=== PATIENT | male | born 1965 | race Caucasian/White ===

== ENCOUNTER 2021-02-07 08:23 | Emergency (ER) | payer OTHER ==
[~2021-02-07] VITALS: Ht 180.3 cm; Wt 70.3 kg
[2021-02-07 09:50] VITALS: BP 114/82
== END 2021-02-07 10:29 | disposition home or self-care (01) ==
LOC: ER 08:23
DX: S46.911A Strain of unspecified muscle, fascia and tendon at shoulder and upper arm level, right arm, initial encounter (principal); M19.011 Primary osteoarthritis, right shoulder; F17.210 Nicotine dependence, cigarettes, uncomplicated; Z88.6 Allergy status to analgesic agent; Z88.8 Allergy status to other drugs, medicaments and biological substances; X50.1XXA Overexertion from prolonged static or awkward postures, initial encounter; Y93.89 Activity, other specified; Y92.89 Other specified places as the place of occurrence of the external cause; Y99.8 Other external cause status
CPT/HCPCS: 73030

== ENCOUNTER 2024-02-10 08:14 | Inpatient (IN) | payer OTHER ==
[2024-02-10] VITALS (10 sets, daily range): BP systolic 114–133; BP diastolic 78–83; PULSE 59–105; RESP 16–20; TEMP 98.2; O2SAT 92–98
[~2024-02-10] VITALS: Ht 180.3 cm; Wt 69.3 kg
--- NOTE | 2024-02-10 09:37 | DVH ---
CHEST RADIOGRAPH Indication:sob Technique: Single frontal view of the chest was obtained COMPARISON: None FINDINGS: Lines and Tubes: None Lungs: Clear Pleura: No effusion. No pneumothorax. Cardiomediastinal contours: Unremarkable Bones: Unremarkable IMPRESSION: No acute disease.
[2024-02-10 09:40] LABS: Basophils # (auto) 0 10 ^3/uL (0-0.2); Basophils % (auto) 0.9 % (0.0-2.0); Eosinophils # (auto) 0.2 10 ^3/uL (0-0.8); Eosinophils % (auto) 3.3 % (0.0-7.0); Hemoglobin 16.2 g/dL (13.5-17.5); Lymphocytes # (auto) 0.9 10 ^3/uL (0.4-5.4); Lymphocytes % (auto) 18.1 % (10.0-50.0); Mean Corpuscular Hemoglobin 31.5 pg (28.0-32.0); Mean Corpuscular Hgb Conc. 33.1 g/dL (32.0-36.0); Mean Corpuscular Volume 95.3 fL (80.0-100.0); Monocytes # (auto) 0.8 10 ^3/uL (0-1.3); Monocytes % (auto) 15.3 % (0.0-12.0); Neutrophils # (auto) 3.2 10 ^3/uL (1.6-8.6); Neutrophils % (auto) 62.4 % (37.0-80.0); Platelet Count (auto) 290 10^3/uL (140-450); Red Blood Cells 5.14 10^6/uL (4.5-5.90); Red Cell Distribution Width 13.4 % (11.8-14.3); White Blood Cell 5.1 10^3/uL (4.4-10.8)
[2024-02-10 09:43] LABS: Chloride 106 mmol/L (98-107); Potassium 4.5 mmol/L (3.5-5.1); Sodium 140 mmol/L (136-145)
--- NOTE | 2024-02-10 09:43 | ECG ---
[facility] Test Date: 2024-02-10 Test Time: 08:31:18 Pat Name: MARIA M CALLEJAS Department: ER Room: Gender: M Head Of Art: HELADIO : 1965 Requested By: TANVIR GARZA Order Number: [id number] Reading MD: Measurements Intervals [place] Rate: 51 P: 76 AL: 111 QRS: 88 QRSD: 107 T: 61 QT: 438 QTc: 404 Interpretive Statements Sinus rhythm Borderline short AL interval LAE, consider biatrial enlargement Borderline right axis deviation Please click the below link to view image of tracing.
[2024-02-10 09:44] LABS: Anion Gap 1 (5-15); Carbon Dioxide 33 mmol/L (20-31)
[2024-02-10 09:45] LABS: Calcium 9.8 mg/dL (8.7-10.4)
[2024-02-10 09:49] LABS: Glucose 91 mg/dL (74-106)
[2024-02-10 09:50] LABS: BUN/Creatinine Ratio 14.9 (10.0-20.0); Blood Urea Nitrogen 13 mg/dL (9-23)
[2024-02-10] MEDS: methylPREDNISolone SOD SUCC 125 MG/2 ML VL IV ONE (10:41)
[2024-02-10] MEDS: ALBUTEROL SULF 2.5 MG/0.5ML(0.5%) NEB SOLN NEB ONE (10:43)
--- NOTE | 2024-02-10 10:43 | ED.PDOC ---
History of Present Illness HPI Comments 58 y/o M, with a Hx of asthma, COPD, prostate CA, and polysubstance abuse, presents with c/o shortness of breath for 4 days. Patient endorses on progressively worsening symptoms since initial onset, with no relief with inhaler use. Patient comments on feeling his "lungs tight" and having "something" in them. Patient denies having any chest pain, dyspnea, cough, fever, chills, or other associated symptoms or modifiers at this time. Chief Complaint: Shortness of Breath Time Seen by MD: 08:40 Primary Care Provider: UNKNOWN Reviewed Notes: Nurses Notes, Medications, Allergies Allergies: Coded Allergies: NSAIDs (Unverified Allergy, Severe, SWELING, SOB, DIFFICULTY BREATHING, COUGHING, HIVES, 12/03/13) Aspirin (Verified Allergy, Unknown, 09/07/13) Home Meds No Active Prescriptions or Reported Meds Information Source: Patient Mode of Arrival: Ambulatory Severity: Moderate Timing: Days Duration: Since onset Prehospital treatment: None Past Medical History PAST MEDICAL HISTORY: Asthma, Cancer (prostate ), COPD Surgical History: Denies all surgeries Family History Family History: Reviewed,noncontributory to illness Social History Smoker: Cigarettes, Less Than 1 Pack/Day Alcohol: Occasionally Drugs: Marijuana Lives In: Home Constitutional: denies: chills, diaphoresis, fatigue, fever, malaise, sweats, weakness, others EENTM: denies: blurred vision, double vision, ear bleeding, ear discharge, ear drainage, ear pain, ear ringing, eye pain, eye redness, hearing loss, mouth pain, mouth swelling, nasal discharge, nose bleeding, nose congestion, nose pain, photophobia, tearing, throat pain, throat swelling, voice changes, others Respiratory: reports: shortness of breath; denies: cough, hemoptysis, orthopnea, SOB at rest, SOB with excertion, stridor, wheezing, others Cardiovascular: denies: chest pain, dizzy spells, diaphoresis, Dyspnea on exertion, edema, irregular heart beat, left arm pain, lightheadedness, palpitations, PND, syncope, others Gastrointestinal: denies: abdomen distended, abdominal pain, blood streaked bowels, constipated, diarrhea, dysphagia, difficulty swallowing, hematemesis, melena, nausea, poor appetite, poor fluid intake, rectal bleeding, rectal pain, vomiting, others Genitourinary: denies: burning, dysuria, flank pain, frequency, hematuria, incontinence, penile discharge, penile sore, pain, testicle pain, testicle swelling, urgency, others Neurological: denies: dizziness, fainting, headache, left sided numbness, left sided weakness, numbness, paresthesia, pre-existing deficit, right sided numbness, right sided weakness, seizure, speech problems, tingling, tremors, weakness, others Musculoskeletal: denies: back pain, gout, joint pain, joint swelling, muscle pain, muscle stiffness, neck pain, others Integumetry: denies: bruises, change in color, change in hair/nails, dryness, laceration, lesions, lumps, rash, wounds, others Allergic/Immunocompromised: denies: Difficulty Healing, Frequent Infections, Hives, Itching, others Hematologic/Lymphatic: denies: anemia, blood clots, easy bleeding, easy bruising, swollen glands, others Endocrine: denies: excessive hunger, excessive sweating, excessive thirst, excessive urination, flushing, intolerance to cold, intolerance to heat, unexplained weight gain, unexplained weight loss, others Psychiatric: denies: anxiety, bipolar disorder, depression, hopeless, panic disorder, schizophrenia, sleepless, suicidal, others All Other Systems: Reviewed and Negative Physical Exam General Appearance: Moderate Distress HEENT: Normal ENT Inspection, Pharynx Normal, TMs Normal Neck: Full Range of Motion, Non-Tender, Normal, Normal Inspection Respiratory: Other (Coarse breath sounds) Cardiovascular: No Edema, No JVD, No Murmur, No Gallop, Normal Peripheral Pulses, Regular Rate/Rhythm Breast Exam: Deferred Gastrointestinal: No Organomegaly, Non Tender, No Pulsatile Mass, Normal Bowel Sounds, Soft Genitalia: Deferred Pelvic: Deferred Rectal: Deferred Extremities: No calf tenderness, Normal capillary refill, Normal inspection, Normal range of motion, Non-tender, No pedal edema Musculoskeletal : Apperance: Normal Neurologic: Alert, 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 Was a procedure done?: No EKG EKG : Pulse Rate (adult): 51 [place]: Normal Cardiac Rhythm: NSR Block: None Hypertrophy: None ST: Normal Differential Dx Considerations may include: SC, PE, bronchitis, PNA, Covid19, URI, COPD exacerbation, asthma exacerbation X-Ray, Labs, Meds, VS Vital Signs Date Time Temp Pulse Resp B/P (MAP) Pulse Ox O2 Delivery O2 Flow Rate FiO2 02/10/24 10:45 59 18 95 Room Air* 0 21 02/10/24 10:44 21 95 Room Air* 0 21 02/10/24 10:43 51 02/10/24 10:40 97.5 59 18 133/83 (100) 95 97.5 02/10/24 08:31 51 02/10/24 08:18 97.5 63 22 130/86 (101) 94 02/10/24 08:18 22 94 Room Air* 0 21 Lab Test 02/10/24 09:16 Range/Units White Blood Count 5.1 4.4-10.8 10^3/uL Red Blood Count 5.14 4.5-5.90 10^6/uL Hemoglobin 16.2 13.5-17.5 g/dL Hematocrit 49.0 41.0-53.0 % Mean Corpuscular Volume 95.3 80.0-100.0 fL Mean Corpuscular Hemoglobin 31.5 28.0-32.0 pg Mean Corpuscular Hemoglobin Concent 33.1 32.0-36.0 g/dL Red Cell Distribution Width 13.4 11.8-14.3 % Platelet Count 290 140-450 10^3/uL Mean Platelet Volume 8.5 6.9-10.8 fL Neutrophils (%) (Auto) 62.4 37.0-80.0 % Lymphocytes (%) (Auto) 18.1 10.0-50.0 % Monocytes (%) (Auto) 15.3 H 0.0-12.0 % Eosinophils (%) (Auto) 3.3 0.0-7.0 % Basophils (%) (Auto) 0.9 0.0-2.0 % Neutrophils # (Auto) 3.2 1.6-8.6 10 ^3/uL Lymphocytes # (Auto) 0.9 0.4-5.4 10 ^3/uL Monocytes # (Auto) 0.8 0-1.3 10 ^3/uL Eosinophils # (Auto) 0.2 0-0.8 10 ^3/uL Basophils # (Auto) 0 0-0.2 10 ^3/uL Nucleated Red Blood Cells 0.0 % Sodium Level 140 136-145 mmol/L Potassium Level 4.5 3.5-5.1 mmol/L Chloride Level 106 98-107 mmol/L Carbon Dioxide Level 33 H 20-31 mmol/L Anion Gap 1 L 5-15 Blood Urea Nitrogen 13 9-23 mg/dL Creatinine 0.87 0.700-1.30 mg/dL Glomerular Filtration Rate Calc 99 >90 mL/min BUN/Creatinine Ratio 14.9 10.0-20.0 Serum Glucose 91 74-106 mg/dL Calcium Level 9.8 8.7-10.4 mg/dL Troponin I High Sensitivity < 3 L </=54 ng/L Current Medications Medications (Trade) Dose Ordered Sig/Jeanie Route Start Time Stop Time Status Last Admin Methylprednisolone Sodium Succinate (Solu Medrol) 125 mg ONCE ONCE IV 02/10/24 10:30 02/10/24 10:31 DC 02/10/24 10:41 Albuterol (Ventolin Medneb) 5 mg ONCE ONCE NEB 02/10/24 10:30 02/10/24 10:31 DC 02/10/24 10:43 Ipratropium [place] (Atrovent Medneb) 0.5 mg ONCE ONCE NEB 02/10/24 10:30 02/10/24 10:31 DC 02/10/24 10:44 Levofloxacin/ Dextrose 100 ml @ 100 mls/hr ONCE ONCE IV 02/10/24 11:15 02/10/24 12:14 02/10/24 11:[address] [address] Ph: [phone] DIAGNOSTIC IMAGING Diagnostic Imaging Report : [id number] Signed PATIENT: MARIA M CALLEJAS ACCT: [id number] UNIT: [id number] : 1965 LOC: ER ROOM / BED: / AGE / SEX: 58 / M ADM STATUS: REG ER SERVICE 4 ORDERING PHYSICIAN: TANVIR GARZA MD PROCEDURE(s): CXRP - CHEST PORTABLE REASON: sob ORDER NUMBER(s): [id number], ACCESSION NUMBER(s): [id number] CHEST RADIOGRAPH Indication:sob Technique: Single frontal view of the chest was obtained COMPARISON: None FINDINGS: Lines and Tubes: None Lungs: Clear Pleura: No effusion. No pneumothorax. Cardiomediastinal contours: Unremarkable Bones: Unremarkable IMPRESSION: No acute disease. ATED BY: HUSEYIN LOONEY MD DICTATED DATE/TIME: 02/10/24933 SIGNED BY: HUSEYIN LOONEY MD SIGNED DATE/TIME: 02/10/24933 CC: Patient alert. Complaining of shortness a breath. History of asthma. Vitals stable. Continues to smoke cigarettes. Counseled patient on effects of smoking cigarettes for 15 minutes. Chest x-ray reviewed does not show any acute changes. Cardiac marker within normal limits. CO2 elevated. Continues to have shortness a breath. Was given steroid. Was given breathing treatment. Reviewed his previous visit. Explained to the patient. Continue cardiac monitoring. Time of 1ST Reevaluation: 09:10 Reevaluation 1ST: Unchanged Patient Education/Counseling: Diagnosis, Treatment Family Education/Counseling: No Family Present Departure 1 Departure Time of Disposition: :12 Impression: Primary Impression: Acute asthma exacerbation Qualified Codes: J45.41 - Moderate persistent asthma with (acute) exacerbation Additional Impression: Pneumonitis Disposition: ADMITTED INPATIENT Admit to: Med Surg Condition: Guarded e-Prescriptions No Active Prescriptions or Reported Meds Critical Care Note Critical Care Time?: Yes (45 min-critical care time only) Stability Stability form required: No Heart Score Heart Score: Heart Score Response (Comments) Value History Moderate Suspicious 1 EKG Normal 0 Age 45-64 1 Risk Factors 1 or 2 risk factors 1 Troponin Normal limit 0 Total 3 I personally scribed for TANVIR GARZA MD ([email or web address]) on 02/10/24 at 10:43. Electronically submitted by Nikita Rodriguez ([email or web address]). I personally scribed for TANVIR GARZA MD ([email or web address]) on 02/10/24 at 11:55. Electronically submitted by Nikita Rodriguez ([email or web address]). TANVIR GARZA MD Feb 10, 2024 10:43
[2024-02-10] MEDS: IPRATROPIUM BROM 0.5 MG/2.5ML INH SOL NEB ONE (10:44)
[2024-02-10] MEDS: levoFLOXacin 500MG 100 ML IV ONE (11:22)
--- NOTE | 2024-02-10 11:54 | DVHHP2 ---
Admitting Diagnosis: Shortness of breath History of Present Illness 58 yo male patient with hx of asthma, COPD, prostate cancer, and polysubstance abuse c/o shortness of breath x 4 days that has been worsening. Patient denies finding relief with his inhaler use. While in the emergency department the patient was evaluated by the provider, As per provider: Labs, vital signs, and imagining monitored. Patient will be admitted for further evaluation and treatment. I discussed admission with the patient/family and is in agreement to treatment plan. Patient Family History: Alcoholism G8 FATHER Family history: Alzheimer's disease G8 MOTHER Family history: Cardiovascular disease G8 FATHER Ischemic heart disease G8 FATHER Stroke G8 FATHER Allergies: Coded Allergies: NSAIDs (Unverified Allergy, Severe, SWELING, SOB, DIFFICULTY BREATHING, COUGHING, HIVES, 12/03/13) Aspirin (Verified Allergy, Unknown, 09/07/13) Home Meds No Active Prescriptions or Reported Meds Current Medications Current Medications Medications (Trade) Dose Ordered Sig/Jeanie Route PRN Reason Start Time Stop Time Status Last Admin Acetaminophen/ Hydrocodone Bitart ([place] 5/325MG Tab) 1 tab Q4HP PRN PO MODERATE PAIN (4-6 PAIN SCALE) 02/10/24 12:00 Temazepam (Restoril) 15 mg QHSP PRN PO FOR INSOMNIA 02/10/24 12:00 Ondansetron HCl (Zofran) 4 mg Q4HP PRN IV NAUSEA / VOMITING 02/10/24 12:00 Docusate Sodium (Colace Capsule) 100 mg BIDPRN PRN PO FOR CONSTIPATION 02/10/24 12:00 Enoxaparin Sodium (Lovenox) 40 mg DAILY SC 02/11/24 10:00 Acetaminophen (Tylenol Tablet) 650 mg Q6HP PRN PO PAIN SCALE 1-3 OR TEMP>100.4 02/10/24 12:00 Albuterol (Ventolin Medneb) 2.5 mg Q4HR NEB 02/10/24 14:00 02/10/24 18:25 Methylprednisolone Sodium Succinate (Solu Medrol) 40 mg Q6HR IV 02/10/24 12:00 02/10/24 17:52 Famotidine (Pepcid Tablet) 20 mg BID PO 02/10/24 22:00 Review of Systems Constitutional: denies chills, denies fever, denies malaise Eyes: denies eye pain, denies vision change ENT: denies ear pain, denies headache, denies nasal congestion, denies painful swallowing, denies voice change Cardiovascular: denies chest pain, denies edema, denies orthopnea, denies palpitations, denies paroxysmal nocturnal dyspnea Respiratory: denies cough, denies shortness of breath Gastrointestinal: denies constipation, denies diarrhea, denies nausea, denies vomiting Genitourinary: denies dysuria, denies frequent urination, denies urethral discharge Musculoskeletal: denies back pain, denies joint pain, denies muscle pain Skin: denies bruising, denies itching, denies rash Neurological: denies focal weakness, denies headache, denies sensory changes Psychiatric: denies anxiety, denies depression Endocrine: denies polydipsia, denies polyuria Hematologic/Lymphatic: denies easy bleeding, denies easy bruising, denies enlarged lymph nodes Allergic/Immunologic: denies allergy, denies hives Vital Signs Vital Signs Date Time Temp Pulse Resp B/P (MAP) Pulse Ox O2 Delivery O2 Flow Rate FiO2 02/10/24 20:14 86 16 94 Room Air* 0 21 02/10/24 19:47 97.4 117/82 (94) 97.4 Physical Exam General Appearance: alert, no distress HEENT: EOMI, PERRLA, normal external inspect of ears, no icterus, no nasal drainage Neck: no carotid bruit, no jugular venous distention (JVD), no lymphadenopathy Chest: normal thorax Respiratory: clear to auscultation, normal air movement Cardiovascular: regular rate and rhythm, no diastolic murmur, no jugular venous distention (JVD), no rub, no systolic murmur Abdominal: soft, no hepatomegaly, no mass, no splenomegaly, no tenderness Genitourinary: grossly normal external Musculoskeletal: no joint tenderness, no swelling Extremities: normal pulses, no calf tenderness, no clubbing, no cyanosis, no edema Skin: no bruising, no jaundice, no rash Neurological: alert, No focal deficit Results Labs Test 02/10/24 09:16 Range/Units White Blood Count 5.1 4.4-10.8 10^3/uL Red Blood Count 5.14 4.5-5.90 10^6/uL Hemoglobin 16.2 13.5-17.5 g/dL Hematocrit 49.0 41.0-53.0 % Mean Corpuscular Volume 95.3 80.0-100.0 fL Mean Corpuscular Hemoglobin 31.5 28.0-32.0 pg Mean Corpuscular Hemoglobin Concent 33.1 32.0-36.0 g/dL Red Cell Distribution Width 13.4 11.8-14.3 % Platelet Count 290 140-450 10^3/uL Mean Platelet Volume 8.5 6.9-10.8 fL Neutrophils (%) (Auto) 62.4 37.0-80.0 % Lymphocytes (%) (Auto) 18.1 10.0-50.0 % Monocytes (%) (Auto) 15.3 H 0.0-12.0 % Eosinophils (%) (Auto) 3.3 0.0-7.0 % Basophils (%) (Auto) 0.9 0.0-2.0 % Neutrophils # (Auto) 3.2 1.6-8.6 10 ^3/uL Lymphocytes # (Auto) 0.9 0.4-5.4 10 ^3/uL Monocytes # (Auto) 0.8 0-1.3 10 ^3/uL Eosinophils # (Auto) 0.2 0-0.8 10 ^3/uL Basophils # (Auto) 0 0-0.2 10 ^3/uL Nucleated Red Blood Cells 0.0 % Sodium Level 140 136-145 mmol/L Potassium Level 4.5 3.5-5.1 mmol/L Chloride Level 106 98-107 mmol/L Carbon Dioxide Level 33 H 20-31 mmol/L Anion Gap 1 L 5-15 Blood Urea Nitrogen 13 9-23 mg/dL Creatinine 0.87 0.700-1.30 mg/dL Glomerular Filtration Rate Calc 99 >90 mL/min BUN/Creatinine Ratio 14.9 10.0-20.0 Serum Glucose 91 74-106 mg/dL Calcium Level 9.8 8.7-10.4 mg/dL Troponin I High Sensitivity < 3 L </=54 ng/L Plan 1. Acute asthma exacerbation Monitor, med neb tx, supplemental O2, IV steroids 2. COPD Monitor, med neb tx, supplemental O2, IV steroids, DVT prophylaxis, PPI 3. 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 Smoker Monitor, smoking cessation education Plan discussed with: Patient, Other ALDAIR VANEGAS NP Feb 10, 2024 11:54
[2024-02-10] MEDS: methylPREDNISolone SOD SUCC 40 MG/ML VL IV SCH (12:00)
[2024-02-10] MEDS ORDERED: DOCUSATE SOD 100 MG CAP PO PRN (12:00)
[2024-02-10] MEDS ORDERED: ACETAMINOPHEN 325 MG TAB PO PRN (12:00)
[2024-02-10] MEDS ORDERED: TEMAZEPAM 15 MG CAP PO PRN (12:00)
[2024-02-10] MEDS ORDERED: HYDROcodone-ACET 5/325MG TAB PO PRN (12:00)
[2024-02-10] MEDS ORDERED: ONDANSETRON HCL 4 MG/2 ML VIAL IV PRN (12:00)
[2024-02-10] MEDS: ALBUTEROL SULF 2.5 MG/0.5ML(0.5%) NEB SOLN NEB SCH (13:36)
[2024-02-10] MEDS: FAMOTIDINE 20 MG TAB PO SCH (22:48)
[2024-02-11] VITALS (14 sets, daily range): BP systolic 113–133; BP diastolic 76–85; PULSE 72–90; RESP 16–20; TEMP 97.7–98.8; O2SAT 92–94
[2024-02-11 06:46] LABS: Basophils # (auto) 0 10 ^3/uL (0-0.2); Basophils % (auto) 0.2 % (0.0-2.0); Eosinophils # (auto) 0 10 ^3/uL (0-0.8); Hematocrit 44.8 % (41.0-53.0); Hemoglobin 14.9 g/dL (13.5-17.5); Lymphocytes # (auto) 0.4 10 ^3/uL (0.4-5.4); Lymphocytes % (auto) 5.1 % (10.0-50.0); Mean Corpuscular Hemoglobin 31.7 pg (28.0-32.0); Mean Corpuscular Hgb Conc. 33.3 g/dL (32.0-36.0); Mean Corpuscular Volume 95.3 fL (80.0-100.0); Monocytes # (auto) 0.4 10 ^3/uL (0-1.3); Monocytes % (auto) 4.8 % (0.0-12.0); Neutrophils # (auto) 6.7 10 ^3/uL (1.6-8.6); Neutrophils % (auto) 89.9 % (37.0-80.0); Platelet Count (auto) 270 10^3/uL (140-450); Red Cell Distribution Width 13.4 % (11.8-14.3); White Blood Cell 7.4 10^3/uL (4.4-10.8)
[2024-02-11 07:00] LABS: Alanine Aminotransferase 26 U/L (7-40); Albumin 4.4 g/dL (3.2-4.8); Alkaline Phosphatase 97 U/L (46-116); Calcium 9.7 mg/dL (8.7-10.4)
[2024-02-11 07:01] LABS: Anion Gap 5 (5-15); Aspartate Aminotransferase 17 U/L (13-40); BUN/Creatinine Ratio 19.3 (10.0-20.0); Bilirubin, Total 0.3 mg/dL (0.2-1.0); Blood Urea Nitrogen 16 mg/dL (9-23); Carbon Dioxide 24 mmol/L (20-31); Chloride 110 mmol/L (98-107); Glucose 131 mg/dL (74-106); Potassium 4.2 mmol/L (3.5-5.1); Sodium 139 mmol/L (136-145)
--- NOTE | 2024-02-11 08:39 | DVHPN2 ---
Progress Note - Dictate vital signs Vital Sign Date Time Temp Pulse Resp B/P (MAP) Pulse Ox O2 Delivery O2 Flow Rate FiO2 02/11/24 06:22 81 18 94 02/11/24 06:12 Room Air* 0 21 02/11/24 05:00 97.8 122/83 (96) 97.8 Total Intake and Output 02/10/24 02/10/24 02/11/24 15:00 23:00 07:00 Intake Total 200 ml Balance 200 ml medications Current Medications Medications Dose Ordered Sig/Jeanie Route Start Time Stop Time Status Last Admin Dose Admin Acetaminophen/ Hydrocodone Bitart 1 tab Q4HP PRN PO 02/10/24 12:00 Temazepam 15 mg QHSP PRN PO 02/10/24 12:00 Ondansetron HCl 4 mg Q4HP PRN IV 02/10/24 12:00 Docusate Sodium 100 mg BIDPRN PRN PO 02/10/24 12:00 Enoxaparin Sodium 40 mg DAILY SC 02/11/24 10:00 Acetaminophen 650 mg Q6HP PRN PO 02/10/24 12:00 Albuterol 2.5 mg Q4HR NEB 02/10/24 14:00 02/11/24 06:12 2.5 MG Methylprednisolone Sodium Succinate 40 mg Q6HR IV 02/10/24 12:00 02/11/24 06:02 40 MG Famotidine 20 mg BID PO 02/10/24 22:00 02/10/24 22:48 20 MG laboratory and microbiology Laboratory Tests 02/11/24 06:07 Test 02/11/24 06:07 Range/Units Serum Glucose 131 H 74-106 mg/dL ALDAIR VANEGAS [employer] FINANCIAL ANALYST Feb 11, 2024 08:39
[2024-02-11] MEDS: ENOXAPARIN SOD 40 MG/0.4 ML SYRINGE SC SCH (10:30)
[2024-02-11] MEDS ORDERED: METH4PAK PO (12:08)
[2024-02-11] MEDS ORDERED: AZIT-43 PO (12:08)
--- NOTE | 2024-02-11 12:09 | DVHDS2 ---
Discharge Summary Date of Admission Feb 10, 2024 at 11:50 Date of Discharge: Feb 11, 2024 Labs/Diagnostic Data: Laboratory Results Test 02/11/24 06:07 02/10/24 09:16 White Blood Count 7.4 10^3/uL (4.4-10.8) Red Blood Count 4.70 10^6/uL (4.5-5.90) Hemoglobin 14.9 g/dL (13.5-17.5) Hematocrit 44.8 % (41.0-53.0) Mean Corpuscular Volume 95.3 fL (80.0-100.0) Mean Corpuscular Hemoglobin 31.7 pg (28.0-32.0) Mean Corpuscular Hemoglobin Concent 33.3 g/dL (32.0-36.0) Red Cell Distribution Width 13.4 % (11.8-14.3) Platelet Count 270 10^3/uL (140-450) Mean Platelet Volume 8.8 fL (6.9-10.8) Neutrophils (%) (Auto) 89.9 % (37.0-80.0) Lymphocytes (%) (Auto) 5.1 % (10.0-50.0) Monocytes (%) (Auto) 4.8 % (0.0-12.0) Eosinophils (%) (Auto) 0.0 % (0.0-7.0) Basophils (%) (Auto) 0.2 % (0.0-2.0) Neutrophils # (Auto) 6.7 10 ^3/uL (1.6-8.6) Lymphocytes # (Auto) 0.4 10 ^3/uL (0.4-5.4) Monocytes # (Auto) 0.4 10 ^3/uL (0-1.3) Eosinophils # (Auto) 0 10 ^3/uL (0-0.8) Basophils # (Auto) 0 10 ^3/uL (0-0.2) Nucleated Red Blood Cells 0.0 % Sodium Level 139 mmol/L (136-145) Potassium Level 4.2 mmol/L (3.5-5.1) Chloride Level 110 mmol/L (98-107) Carbon Dioxide Level 24 mmol/L (20-31) Anion Gap 5 (5-15) Blood Urea Nitrogen 16 mg/dL (9-23) Creatinine 0.83 mg/dL (0.700-1.30) Glomerular Filtration Rate Calc 100 mL/min (>90) BUN/Creatinine Ratio 19.3 (10.0-20.0) Serum Glucose 131 mg/dL (74-106) Calcium Level 9.7 mg/dL (8.7-10.4) Total Bilirubin 0.3 mg/dL (0.2-1.0) Aspartate Amino Transferase (AST) 17 U/L (13-40) Alanine Aminotransferase (ALT) 26 U/L (7-40) Alkaline Phosphatase 97 U/L (46-116) Total Protein 7.0 g/dL (5.7-8.2) Albumin 4.4 g/dL (3.2-4.8) Troponin I High Sensitivity < 3 ng/L (</=54) Other Laboratory Tests 02/11/24 06:07 Brief Hx & Hospital Course: 58 yo male patient with hx of asthma, COPD, prostate cancer, and polysubstance abuse c/o shortness of breath x 4 days that has been worsening. Patient denies finding relief with his inhaler use. Patient was admitted for asthma exacerbation. Patient has a history of COPD and prostate cancer. Patient was seen by pulmonary. Patient received IV steroids and Med-Neb treatments. Patient was on room air. SpO2 94%. Patient was stable. Wheezing had improved. Patient was sent home with a Z-Reza and Medrol dose taper pack. He will follow-up with his PCP in 1 week. The patient received proper medical treatment and medications. Vital signs, Imaging and Laboratory Work was monitored daily. All consults recommendations were followed as provided. There were no complaints or new complaints upon discharge, all questions and concerns were answered. Patient was advised to return to the ER or call 911 if any headaches, dizziness, shortness of breath, chest pain, bleeding, fevers, or worsening of medical condition. Patient/Family was counseled about treatment plan, medications, possible side effects, patient verbalized understanding. All questions were answered to the best of my ability. The patient symptoms improved and they are okay to be DC. Condition at Discharge: Stable Final Diagnosis/Problems List Acute asthma exacerbation COPD Polysubstance abuse Smoker Discharge Disposition: Home Discharge Instruct/Medications Diet: Cardiac 2g Na,low cholest Activity: No Restrictions, As Tolerated Follow Up/Referral: pcp 1 week Medications: Z-reza Medrol dose reza Discharge Statement: "Patient was advised to return to the ER or call 911 if any headaches, dizziness, shortness of breath, chest pain, abdominal pain, bleeding, fevers, or worsening of medical condition. Patient was counseled about treatment plan, medications, possible side effects, patientverbalized understanding. All questions were answered to the best of my ability. This discharge took greater then 30 minutes in planning, reviewing documentation, counseling the patient, and discussing with other team members." ASSESSMENT ASSESSMENT Assessment Asthma/COPD exac ALDAIR VANEGAS NP Feb 11, 2024 12:09
--- NOTE | 2024-02-11 12:45 | DVHINCON2 ---
Date of service: Feb 10, 2024 Referring Physician RJ Vanegas Reason for Consultation Asthma/COPD exacerbation History of Present Illness 58-year-old man history of asthma, COPD, prostate cancer, polysubstance abuse who presented with shortness breath for the last four days. He was on Breztri, albuterol HFA and Trezpire. He has bilateral wheezing. Pulmonary consultation is called due to acute exacerbation of COPD. Review of systems: 14 point review of systems is negative unless otherwise noted above. Past medical history: Asthma, COPD, prostate cancer, polysubstance abuse Past surgical history: Denies all surgeries. Medications: Reviewed Allergies: Aspirin, NSAIDs Family history: No family history of premature CAD. No family history of lung disease Social history: Active smoker less than one pack per day. Social alcohol use. Marijuana use. Lives at home. Family History: Alcoholism G8 FATHER Family history: Alzheimer's disease G8 MOTHER Family history: Cardiovascular disease G8 FATHER Ischemic heart disease G8 FATHER Stroke G8 FATHER Allergies: Coded Allergies: NSAIDs (Unverified Allergy, Severe, SWELING, SOB, DIFFICULTY BREATHING, COUGHING, HIVES, 12/03/13) Aspirin (Verified Allergy, Unknown, 09/07/13) Home Meds Active Scripts Methylprednisolone (Medrol Dosepak) 4 Mg Reza, 4 MG PO UD, #21 TAB UAD Prov:ALDAIR VANEGAS NP 02/11/24 Azithromycin (Azithromycin) 250 Mg Tab, 250 MG PO DAILY MDD 500 for 5 Days, #6 TAB 0 Refills 2 TABLETS ORALLY ON DAY ONE, THEN 1 TABLET ORALLY DAILY FOR 4 DAYS Prov:ALDAIR VANEGAS NP 02/11/24 Current Medications Current Medications Medications (Trade) Dose Ordered Sig/Jeanie Route PRN Reason Start Time Stop Time Status Last Admin Enoxaparin Sodium (Lovenox) 40 mg DAILY SC 02/11/24 10:00 02/11/24 10:30 Albuterol (Ventolin Medneb) 2.5 mg Q4HR NEB 02/10/24 14:00 02/11/24 10:40 Famotidine (Pepcid Tablet) 20 mg BID PO 02/10/24 22:00 02/11/24 10:29 Vital Signs Vital Signs Date Time Temp Pulse Resp B/P (MAP) Pulse Ox O2 Delivery O2 Flow Rate FiO2 02/11/24 10:50 75 18 94 11/13/24 10:40 Room Air* 0 21 02/11/24 09:00 98.8 133/85 (101) 98.8 Physical Exam Gen.: Patient lying in bed in moderate apparent distress. On room air. Head: Normocephalic, atraumatic Eyes: EOMI/PERRLA. Ears: Normal hearing. Normal anatomy. Neck/trachea: Trachea midline, supple. Nose: Normal external anatomy. Mouth: Moist mucous membranes. Chest: Decreased air entry bilaterally. Bilateral wheezing. No rhonchi. Cardio vascular: Positive S1, positive S2. Regular rate and rhythm. Abdomen: Positive bowel sounds in all 4 quadrants. Soft, non-tender, non- distended. : Deferred. Rectal: Deferred Skin: Warm, dry. Extremities: 2+ radial pulses bilaterally. No lower extremity edema. Neuro: Awake, alert, oriented x3. No gross motor or sensory deficits. Cranial nerves II through XII intact. Gait not assessed. Labs/Diagnostic Data Labs Test 02/11/24 06:07 02/10/24 09:16 Range/Units White Blood Count 7.4 # 4.4-10.8 10^3/uL Red Blood Count 4.70 4.5-5.90 10^6/uL Hemoglobin 14.9 13.5-17.5 g/dL Hematocrit 44.8 41.0-53.0 % Mean Corpuscular Volume 95.3 80.0-100.0 fL Mean Corpuscular Hemoglobin 31.7 28.0-32.0 pg Mean Corpuscular Hemoglobin Concent 33.3 32.0-36.0 g/dL Red Cell Distribution Width 13.4 11.8-14.3 % Platelet Count 270 140-450 10^3/uL Mean Platelet Volume 8.8 6.9-10.8 fL Neutrophils (%) (Auto) 89.9 H 37.0-80.0 % Lymphocytes (%) (Auto) 5.1 L 10.0-50.0 % Monocytes (%) (Auto) 4.8 0.0-12.0 % Eosinophils (%) (Auto) 0.0 0.0-7.0 % Basophils (%) (Auto) 0.2 0.0-2.0 % Neutrophils # (Auto) 6.7 1.6-8.6 10 ^3/uL Lymphocytes # (Auto) 0.4 0.4-5.4 10 ^3/uL Monocytes # (Auto) 0.4 0-1.3 10 ^3/uL Eosinophils # (Auto) 0 0-0.8 10 ^3/uL Basophils # (Auto) 0 0-0.2 10 ^3/uL Nucleated Red Blood Cells 0.0 % Sodium Level 139 136-145 mmol/L Potassium Level 4.2 3.5-5.1 mmol/L Chloride Level 110 H 98-107 mmol/L Carbon Dioxide Level 24 20-31 mmol/L Anion Gap 5 5-15 Blood Urea Nitrogen 16 9-23 mg/dL Creatinine 0.83 0.700-1.30 mg/dL Glomerular Filtration Rate Calc 100 >90 mL/min BUN/Creatinine Ratio 19.3 10.0-20.0 Serum Glucose 131 H 74-106 mg/dL Calcium Level 9.7 8.7-10.4 mg/dL Total Bilirubin 0.3 0.2-1.0 mg/dL Aspartate Amino Transferase (AST) 17 13-40 U/L Alanine Aminotransferase (ALT) 26 7-40 U/L Alkaline Phosphatase 97 46-116 U/L Total Protein 7.0 5.7-8.2 g/dL Albumin 4.4 3.2-4.8 g/dL Troponin I High Sensitivity < 3 L </=54 ng/L Assessment Impression: Acute exacerbation of COPD Severe uncontrolled asthma Polysubstance abuse Nicotine dependence Plan: On room air Continue bronchodilators Pulmicort BID Complete steroid course Smoking cessation discussed greater than 10 minutes. Pt smokes cigarettes and smokes marijuana. SW consult for substance abuse. DVT prophylaxis Prognosis: Guarded given multiple comorbidities. Rest of plan per hospitalist and other consultants. Thank you Dr. Babin/Flori Vanegas AUTOMOTIVE PARTS MANAGER for allowing me to participate in this patient's care. Further recommendations will depend on patient's clinical course. Please do not hesitate to contact me if you have any questions or concerns. This medical document was created using an electronic medical record system with [employer] system. Although this document has been carefully reviewed, there may still be some phonetic and typographical errors. These ar eas are purely typographical due to imperfections of the software programs, and do not reflect any compromise in the patient's medical care. Plan discussed with: Patient, Other (RN, AUTOMOTIVE PARTS MANAGER) TWAN ZAVALA MD Feb 11, 2024 12:45
--- NOTE | 2024-02-11 12:48 | DVHPN2 ---
Progress Note - Dictate Date Seen: Feb 11, 2024 Medical Necessity Reason Pt with a Central, PICC or Fol: No Subjective Patient seen and examined at bedside Wheezing improving. No new complaints. Feeling better. vital signs Vital Sign Date Time Temp Pulse Resp B/P (MAP) Pulse Ox O2 Delivery O2 Flow Rate FiO2 02/11/24 10:50 75 18 94 02/11/24 10:40 Room Air* 0 21 02/11/24 09:00 98.8 133/85 (101) 98.8 Total Intake and Output 02/10/24 02/10/24 02/11/24 15:00 23:00 07:00 Intake Total 200 ml Balance 200 ml medications Current Medications Medications Dose Ordered Sig/Jeanie Route Start Time Stop Time Status Last Admin Dose Admin Acetaminophen/ Hydrocodone Bitart 1 tab Q4HP PRN PO 02/10/24 12:00 Temazepam 15 mg QHSP PRN PO 02/10/24 12:00 Ondansetron HCl 4 mg Q4HP PRN IV 02/10/24 12:00 Docusate Sodium 100 mg BIDPRN PRN PO 02/10/24 12:00 Enoxaparin Sodium 40 mg DAILY SC 02/11/24 10:00 02/11/24 10:30 Acetaminophen 650 mg Q6HP PRN PO 02/10/24 12:00 Albuterol 2.5 mg Q4HR NEB 02/10/24 14:00 02/11/24 10:40 Methylprednisolone Sodium Succinate 40 mg Q6HR IV 02/10/24 12:00 02/11/24 12:01 Famotidine 20 mg BID PO 02/10/24 22:00 02/11/24 10:29 objective Gen.: Patient lying in bed in moderate apparent distress. On room air. Head: Normocephalic, atraumatic Eyes: EOMI/PERRLA. Ears: Normal hearing. Normal anatomy. Neck/trachea: Trachea midline, supple. Nose: Normal external anatomy. Mouth: Moist mucous membranes. Chest: Decreased air entry bilaterally. Bilateral wheezing, improving. No rhonchi. Cardio vascular: Positive S1, positive S2. Regular rate and rhythm. Abdomen: Positive bowel sounds in all 4 quadrants. Soft, non-tender, non- distended. : Deferred. Rectal: Deferred Skin: Warm, dry. Extremities: 2+ radial pulses bilaterally. No lower extremity edema. Neuro: Awake, alert, oriented x3. No gross motor or sensory deficits. Cranial nerves II through XII intact. Gait not assessed. laboratory and microbiology Laboratory Tests 02/11/24 06:07 Test 02/11/24 06:07 Range/Units Serum Glucose 131 H 74-106 mg/dL Assessment/Plan Impression: Acute exacerbation of COPD Severe uncontrolled asthma Polysubstance abuse Nicotine dependence Plan: On room air Continue bronchodilators Pulmicort BID Eosinophils on admission 200 Complete steroid course Wheezing improving. Resume Breztri on discharge. Rinse mouth out after with 8 oz water. Resume Albuterol HFA 2 puffs inhaled every 4 hours PRN SOB/Wheezing. Resume Trezpire injection for severe asthma DVT prophylaxis Prognosis: Guarded given multiple comorbidities. Rest of plan per hospitalist and other consultants. Thank you Dr. Babin/Flori Biggs NP for allowing me to participate in this patient's care. Further recommendations will depend on patient's clinical course. Please do not hesitate to contact me if you have any questions or concerns. This medical document was created using an electronic medical record system with [employer] dictation system. Although this document has been carefully reviewed, there may still be some phonetic and typographical errors. These areas are purely typographical due to imperfections of the software programs, and do not reflect any compromise in the patient's medical care. Plan discussed with: Patient, Other (ASHLEE Hall, CHEMICALS FERMENTATION OPERATOR) TWAN ZAVALA MD Feb 11, 2024 12:48
== END 2024-02-11 13:50 | disposition home or self-care (01) | DRG 140 ==
LOC: ER 08:14 → OVERFLOW 11:50 → CENTRAL 21:58
PROVIDERS: ADMIT Nurse Practitioner; ATTEND Nurse Practitioner
DX: J44.1 Chronic obstructive pulmonary disease with (acute) exacerbation (principal); J45.41 Moderate persistent asthma with (acute) exacerbation; F17.210 Nicotine dependence, cigarettes, uncomplicated; J98.4 Other disorders of lung; F19.10 Other psychoactive substance abuse, uncomplicated; Z85.46 Personal history of malignant neoplasm of prostate; Z88.6 Allergy status to analgesic agent; Z82.49 Family history of ischemic heart disease and other diseases of the circulatory system; Z82.0 Family history of epilepsy and other diseases of the nervous system; Z82.3 Family history of stroke
CPT/HCPCS: 36415; 71045; 80048; 80053; 84484; 85025; 93005; 94640; 96374; 99291; G0378; J1956

== ENCOUNTER 2024-07-10 05:43 | Emergency (ER) | payer OTHER ==
[~2024-07-10] VITALS: Ht 180.3 cm; Wt 66.7 kg
[~2024-07-10 05:43] MED LIST: AZIT-43 PO; METH4PAK PO
[2024-07-10 06:52] VITALS: BP 152/88; PULSE 96; RESP 18; TEMP 98.2; O2SAT 93
--- NOTE | 2024-07-10 07:00 | ED.PDOC ---
Musculoskeletal HPI Comments A 59 YEAR OLD MALE PRESENTS TO THE ED WITH COMPLAINT OF LEFT SHOULDER AND LEFT HAND PAIN. PATIENT STATES HE HAS A HISTORY OF RHEUMATOID ARTHRITIS AND STATES HE HAS BEEN HAVING A FLARE UP FOR THE PAST 2 DAYS. PATIENT REPORTS HE WAS NOW EXPERIENCING LEFT HAND AND LEFT SHOULDER PAIN THAT IS WORSE WITH MOVEMENT. PATIENT REPORTS HE USUALLY TAKES PREDNISONE 20MG TO MANAGE HIS PAIN AND LAST HAD AN INJECTION GIVEN TO HIM 4 DAYS AGO AT HIS PRIMARY CARE PHYSICIAN'S OFFICE, BUT NOTES THERE HAS BEEN NO IMPROVEMENT IN HIS PAIN. PATIENT DENIES FEVER, CHILLS, SHORTNESS OF BREATH, CHEST PAIN, ABDOMINAL PAIN, NAUSEA, VOMITING, HEADACHE, OR OTHER COMPLAINTS. NO OTHER SYMPTOMS OR MODIFYING FACTORS AT THIS TIME. PATIENT IS ALERT, ORIENTED X 4, AND HAS STEADY GAIT. Chief Complaint: Upper Extremity Time Seen by MD: 06:34 Primary Care Provider: UNKNOWN Reviewed Notes: Nurses Notes, Medications, Allergies Allergies: Coded Allergies: NSAIDs (Unverified Allergy, Severe, SWELING, SOB, DIFFICULTY BREATHING, COUGHING, HIVES, 12/03/13) Aspirin (Verified Allergy, Unknown, 09/07/13) Home Meds Active Scripts Prednisone (Prednisone) 20 Mg Tab, 40 MG PO DAILY, #20 TAB Prov:SAUL OLIVEIRA 07/10/24 Tramadol HCl (Tramadol HCl) 50 Mg Tab, 50 MG PO TID, #20 TAB Prov:SAUL OLIVEIRA 07/10/24 Methylprednisolone (Medrol Dosepak) 4 Mg Reza, 4 MG PO UD, #21 TAB UAD Prov:ALDAIR VANEGAS NP 02/11/24 Azithromycin (Azithromycin) 250 Mg Tab, 250 MG PO DAILY MDD 500 for 5 Days, #6 TAB 0 Refills 2 TABLETS ORALLY ON DAY ONE, THEN 1 TABLET ORALLY DAILY FOR 4 DAYS Prov:ALDAIR VANEGAS NP 02/11/24 Information Source: Patient Mode of Arrival: Ambulatory Location: Left Extremity Location: Shoulder, Wrist Timing: Days Prehospital treatment: None Severity: Moderate Able to Move Extremity: Yes Bear Weight: Fully Pain: Moderate Mechanism: No Trauma, Spontaneous Circumstances: Spontaneous Onset of Symptoms: Spontaneous Symptoms: Swelling, Pain, Erythema DVT Risk Factors: NONE Last Tetanus: UTD, Unknown Associated signs and symptoms: Shoulder pain, Wrist pain Past Medical History PAST MEDICAL HISTORY: Arthritis, Cancer, COPD Past Medical History (Other): RHEUMATOID ARTHRITIS Surgical History: Denies all surgeries Family History Family History: Reviewed,noncontributory to illness Social History Smoker: Cigarettes, Less Than 1 Pack/Day Alcohol: Occasionally Drugs: Marijuana Lives In: Home Constitutional: denies: chills, diaphoresis, fatigue, fever, malaise, sweats, weakness, others EENTM: denies: blurred vision, double vision, ear bleeding, ear discharge, ear drainage, ear pain, ear ringing, eye pain, eye redness, hearing loss, mouth pain, mouth swelling, nasal discharge, nose bleeding, nose congestion, nose pain, photophobia, tearing, throat pain, throat swelling, voice changes, others Respiratory: denies: cough, hemoptysis, orthopnea, SOB at rest, shortness of breath, SOB with excertion, stridor, wheezing, others Cardiovascular: denies: chest pain, dizzy spells, diaphoresis, Dyspnea on exertion, edema, irregular heart beat, left arm pain, lightheadedness, palpitations, PND, syncope, others Gastrointestinal: denies: abdomen distended, abdominal pain, blood streaked bowels, constipated, diarrhea, dysphagia, difficulty swallowing, hematemesis, melena, nausea, poor appetite, poor fluid intake, rectal bleeding, rectal pain, vomiting, others Genitourinary: denies: burning, dysuria, flank pain, frequency, hematuria, incontinence, penile discharge, penile sore, pain, testicle pain, testicle swelling, urgency, others Neurological: denies: dizziness, fainting, headache, left sided numbness, left sided weakness, numbness, paresthesia, pre-existing deficit, right sided numbness, right sided weakness, seizure, speech problems, tingling, tremors, weakness, others Musculoskeletal: reports: joint pain, joint swelling, others (LEFT HAND PAIN, LEFT SHOULDER PAIN); denies: back pain, gout, muscle pain, muscle stiffness, neck pain Integumetry: denies: bruises, change in color, change in hair/nails, dryness, laceration, lesions, lumps, rash, wounds, others Allergic/Immunocompromised: denies: Difficulty Healing, Frequent Infections, Hives, Itching, others Hematologic/Lymphatic: denies: anemia, blood clots, easy bleeding, easy bruising, swollen glands, others Endocrine: denies: excessive hunger, excessive sweating, excessive thirst, excessive urination, flushing, intolerance to cold, intolerance to heat, unexplained weight gain, unexplained weight loss, others Psychiatric: denies: anxiety, bipolar disorder, depression, hopeless, panic disorder, schizophrenia, sleepless, suicidal, others All Other Systems: Reviewed and Negative Physical Exam General Appearance: No Apparent Distress, Normal, Other (ANXIOUS ) HEENT: Normal ENT Inspection, PERRL/EOMI, Pharynx Normal, TMs Normal Neck: Full Range of Motion, Non-Tender, Normal, Normal Inspection Respiratory: Chest Non-Tender, Lungs Clear, No Accessory Muscle Use, No Respiratory Distress, Normal Breath Sounds Cardiovascular: No Edema, No JVD, No Murmur, No Gallop, Normal Peripheral Pulses, Regular Rate/Rhythm Breast Exam: Deferred Gastrointestinal: No Organomegaly, Non Tender, No Pulsatile Mass, Normal Bowel Sounds, Soft Genitalia: Deferred Pelvic: Deferred Rectal: Deferred Extremities: Decreased range of motion, No calf tenderness, Normal capillary refill, No pedal edema, Swelling (ERYTHEMA AND SWELLING ON LEFT DORSAL WRIST, NO BONY TENDERNESS AND DEFORMITY. ), Tender (TENDERNESS AND MILD SWELLING ON LEFT SHOULDER, NO BONY TENDERNESS AND DEFORMITY. ) Musculoskeletal : Apperance: Normal Neurologic: Alert, microelectronics technician II-XII nml as Tested, No Motor Deficits, Normal Affect, Normal Mood, No Sensory Deficits Cerebellar Function: Normal Reflexes: Normal Skin: Dry, Normal Color, Warm Peripheral Pulses: 2+ carotid (R), 2+ carotid (L), 2+ Radial (R), 2+ Radial (L) Lymphatic: No Adenopathy Was a procedure done? Was a procedure done?: No Differential Diagnosis EXT Differential Diagnosis: Sprain, Gout, DJD, Contusion, Strain, Rheumatoid, Arthritis, Bursitis X-Ray, Labs, Meds, VS Vital Signs Date Time Temp Pulse Resp B/P (MAP) Pulse Ox O2 Delivery O2 Flow Rate FiO2 07/10/24 06:52 96 18 93 Room Air 07/10/24 06:52 98.2 96 18 152/88 (109) 93 98.2 07/10/24 06:41 98.2 96 18 152/88 (109) 93 98.2 Current Medications Medications (Trade) Dose Ordered Sig/Jeanie Route Start Time Stop Time Status Last Admin Methylprednisolone Sodium Succinate (Solu Medrol) 125 mg ONCE ONCE IM 07/10/24 07:00 07/10/24 07:01 DC 07/10/24 07:05 Acetaminophen/ Hydrocodone Bitart ([place] 10/325MG Tab) 1 tab ONCE ONCE PO 07/10/24 07:00 07/10/24 07:01 DC 07/10/24 07:05 X-Ray, Labs, Meds, VS Comment EXTERNAL MEDICAL RECORDS REVIEWED: [NONE] INDEPENDENT HISTORIANS: [NONE] SOCIAL DETERMINANTS OF HEALTH: [NONE] LABS ORDERED: NONE REVIEWED AND INTERPRETED RESULTS: NONE IMAGING ORDERED: NONE TREATMENTS ORDERED: SOLU-MEDROL 125 MG IM, [place] 10/325MG PO PROCEDURES PERFORMED: NONE CRITICAL CARE TIME: NONE I HAVE DISCUSSED THE PATIENT WITH THE ATTENDING PHYSICIAN DR. GARZA AND HE AGREES WITH THE PATIENT'S PLAN OF CARE AND DISPOSITION. BASED ON HISTORY OF PRESENT ILLNESS, AND PHYSICAL EXAM, PATIENT WILL BE DISCHARGED HOME. DISCUSSED PLAN FOR DISCHARGE HOME WITH RX [PREDNISONE 40 MG AND ULTRAM 50MG]. MEDICATION WARNINGS GIVEN. SHARED DECISION MAKING: PATIENT INSTRUCTED TO FOLLOW UP WITH PRIMARY CARE PROVIDER IN 1-2 DAYS FOR RE-EVALUATION OF SYMPTOMS. PATIENT VERBALIZES UNDERSTANDING TO RETURN TO ED FOR NEW OR WORSENING SYMPTOMS OR IF FOLLOW UP WITH PCP CANNOT BE OBTAINED. PATIENT FEELS COMFORTABLE GOING HOME AT THIS TIME. ALL Q UESTIONS ADDRESSED AT TIME OF DISCHARGE. Time of 1ST Reevaluation: 07:30 Reevaluation 1ST: Improved Patient Education/Counseling: Diagnosis, Treatment, Need For Follow Up Family Education/Counseling: Diagnosis, Treatment, Need For Follow Up Medical Screening: No EMC Exist At This Time Departure 1 Departure Time of Disposition: 07:30 Impression: Primary Impression: Flare of rheumatoid arthritis Disposition: 01 HOME / SELF CARE / HOMELESS Condition: Stable Additional Instructions: FOLLOW-UP WITH PCP IN 1 TO 2 DAYS. TAKE MEDICATIONS PRESCRIBED. RETURN TO ED FOR ANY NEW OR WORSENING SYMPTOMS. e-Prescriptions Prednisone (Prednisone) 20 Mg Tab 40 MG PO DAILY, #20 TAB Prov: SAUL OLIVEIRA 07/10/24 Tramadol HCl (Tramadol HCl) 50 Mg Tab 50 MG PO TID, #20 TAB Prov: SAUL OLIVEIRA 07/10/24 Discharged With: Self Critical Care Note Critical Care Time?: No Stability Stability form required: No I personally scribed for SAUL OLIVEIRA ([email or web address]) on 07/10/24 at 07:00. Electronically submitted by Shahid Nevarez ([email or web address]). SAUL OLIVEIRA Jul 10, 2024 07:00
[2024-07-10] MEDS: HYDROcodone-ACET 10/325MG TAB PO ONE (07:05)
[2024-07-10] MEDS: methylPREDNISolone SOD SUCC 125 MG/2 ML VL IM ONE (07:05)
[2024-07-10] MEDS ORDERED: PRED20TA2 PO (07:24)
[2024-07-10] MEDS ORDERED: TRAM-626 PO (07:24)
== END 2024-07-10 07:32 | disposition home or self-care (01) ==
LOC: ER 05:43
DX: M06.9 Rheumatoid arthritis, unspecified (principal); F17.210 Nicotine dependence, cigarettes, uncomplicated; F12.90 Cannabis use, unspecified, uncomplicated; J44.9 Chronic obstructive pulmonary disease, unspecified; Z88.6 Allergy status to analgesic agent
CPT/HCPCS: 96372; 99283; J2919

== ENCOUNTER 2024-08-01 02:19 | Emergency (ER) | payer OTHER ==
[~2024-08-01] VITALS: Ht 180.3 cm; Wt 70.0 kg
[~2024-08-01 02:19] MED LIST changes: +PRED20TA2 PO; +TRAM-626 PO
--- NOTE | 2024-08-01 02:41 | ED.PDOC ---
Back pain HPI HPI Comments Pt arrived in ER due to RA flare up x 1 week. Pt VSS. Pt C/O 01/07 left sided joint pain (shoulder,wrist,knee) Denies any other sympto Chief Complaint: Body Pain Time Seen by MD: 02:30 Primary Care Provider: UNKNOWN Reviewed Notes: Nurses Notes, Medications, Allergies Allergies: Coded Allergies: NSAIDs (Unverified Allergy, Severe, SWELING, SOB, DIFFICULTY BREATHING, COUGHING, HIVES, 12/03/13) Aspirin (Verified Allergy, Unknown, 09/07/13) Home Meds Active Scripts Prednisone (Prednisone) 20 Mg Tab, 40 MG PO DAILY, #20 TAB Prov:SAUL OLIVEIRA 07/10/24 Tramadol HCl (Tramadol HCl) 50 Mg Tab, 50 MG PO TID, #20 TAB Prov:SAUL OLIVEIRA 07/10/24 Methylprednisolone (Medrol Dosepak) 4 Mg Reza, 4 MG PO UD, #21 TAB UAD Prov:ALDAIR VANEGAS NP 02/11/24 Azithromycin (Azithromycin) 250 Mg Tab, 250 MG PO DAILY MDD 500 for 5 Days, #6 TAB 0 Refills 2 TABLETS ORALLY ON DAY ONE, THEN 1 TABLET ORALLY DAILY FOR 4 DAYS Prov:ALDAIR VANEGAS DIEING OUT MACHINE OPERATOR 02/11/24 Past Medical History PAST MEDICAL HISTORY: Arthritis, Cancer, COPD Surgical History: Denies all surgeries Family History Family History: Reviewed,noncontributory to illness Social History Smoker: Cigarettes, Less Than 1 Pack/Day Alcohol: Occasionally Drugs: Marijuana Lives In: Home Constitutional: denies: chills, diaphoresis, fatigue, fever, malaise, sweats, weakness, others EENTM: denies: blurred vision, double vision, ear bleeding, ear discharge, ear drainage, ear pain, ear ringing, eye pain, eye redness, hearing loss, mouth pain, mouth swelling, nasal discharge, nose bleeding, nose congestion, nose pain, photophobia, tearing, throat pain, throat swelling, voice changes, others Respiratory: denies: cough, hemoptysis, orthopnea, SOB at rest, shortness of breath, SOB with excertion, stridor, wheezing, others Cardiovascular: denies: chest pain, dizzy spells, diaphoresis, Dyspnea on exertion, edema, irregular heart beat, left arm pain, lightheadedness, palpitations, PND, syncope, others Gastrointestinal: denies: abdomen distended, abdominal pain, blood streaked bowels, constipated, diarrhea, dysphagia, difficulty swallowing, hematemesis, melena, nausea, poor appetite, poor fluid intake, rectal bleeding, rectal pain, vomiting, others Genitourinary: denies: burning, dysuria, flank pain, frequency, hematuria, incontinence, penile discharge, penile sore, pain, testicle pain, testicle swelling, urgency, others Neurological: denies: dizziness, fainting, headache, left sided numbness, left sided weakness, numbness, paresthesia, pre-existing deficit, right sided numbness, right sided weakness, seizure, speech problems, tingling, tremors, weakness, others Musculoskeletal: reports: joint pain, joint swelling; denies: back pain, gout, muscle pain, muscle stiffness, neck pain, others Integumetry: denies: bruises, change in color, change in hair/nails, dryness, laceration, lesions, lumps, rash, wounds, others Allergic/Immunocompromised: denies: Difficulty Healing, Frequent Infections, Hives, Itching, others Hematologic/Lymphatic: denies: anemia, blood clots, easy bleeding, easy bruising, swollen glands, others Endocrine: denies: excessive hunger, excessive sweating, excessive thirst, excessive urination, flushing, intolerance to cold, intolerance to heat, unexplained weight gain, unexplained weight loss, others Psychiatric: denies: anxiety, bipolar disorder, depression, hopeless, panic disorder, schizophrenia, sleepless, suicidal, others Physical Exam General Appearance: No Apparent Distress, Normal HEENT: Normal ENT Inspection, Pharynx Normal, TMs Normal Neck: Full Range of Motion, Non-Tender, Normal, Normal Inspection Respiratory: Chest Non-Tender, Lungs Clear, No Accessory Muscle Use, No Respiratory Distress, Normal Breath Sounds Cardiovascular: No Edema, No JVD, No Murmur, No Gallop, Normal Peripheral Pulses, Regular Rate/Rhythm Breast Exam: Deferred Gastrointestinal: No Organomegaly, Non Tender, No Pulsatile Mass, Normal Bowel Sounds, Soft Genitalia: Deferred Pelvic: Deferred Rectal: Deferred Extremities: No calf tenderness, Normal capillary refill, Normal inspection, Normal range of motion, Non-tender, No pedal edema Musculoskeletal : Location: Left Extremity Location: Wrist (Moderate tenderness on palpation throughout left wrist noted trace edema and warmth to touch strength sensory motion intact positive radial pulse) Apperance: Normal Neurologic: Alert, foreman or supervisor and operator II-XII nml as Tested, No Motor Deficits, Normal Affect, Normal Mood, No Sensory Deficits Cerebellar Function: Normal Reflexes: Normal Skin: Dry, Normal Color, Warm Lymphatic: No Adenopathy Was a procedure done? Was a procedure done?: No Back Pain Differential Dx Differential Diagnosis: Fracture, Musculoskeletal Pain X-Ray, Labs, Meds, VS Vital Signs Date Time Temp Pulse Resp B/P (MAP) Pulse Ox O2 Delivery O2 Flow Rate FiO2 08/01/24 03:20 97.8 92 19 139/83 (101) 94 97.8 08/01/24 03:20 92 19 94 Room Air 08/01/24 02:30 97.8 103 20 122/90 (101) 96 97.8 X-Ray, Labs, Meds, VS Comment Medications IV push Solu-Medrol 125 mg, Toradol 30 mg IV push, and morphine 2 mg IV push. Patient reports improvement in pain and function states pain is a 3/10 versus 10/10 when arriving. Patient with spouse who was driving patient is requesting discharge at this time. Advised to continue his medications he has a home call his transplant case manager 1st thing Friday morning and schedule an appointment follow up within 2-3 days. Advised on ER return precautions patient indicates understanding and agrees with discharge plan of care. Time of 1ST Reevaluation: 02:20 Reevaluation 1ST: Unchanged Time of 2ND Reevaluation: 04:56 Reevaluation 2ND: Improved Patient Education/Counseling: Diagnosis, Treatment, Prognosis, Need For Follow Up Family Education/Counseling: Diagnosis, Treatment, Prognosis, Need For Follow Up Departure 1 Departure Time of Disposition: 04:56 Impression: Primary Impression: Flare of rheumatoid arthritis Disposition: 01 HOME / SELF CARE / HOMELESS Condition: Stable Discharged With: Spouse Critical Care Note Critical Care Time?: No Stability Stability form required: LEANN Steele August 01, 2024 02:41
[2024-08-01] MEDS: KETOROLAC TROMETH 30 MG/ML 1ML VIAL IV ONE (02:45)
[2024-08-01] MEDS: MORPHINE SULFATE INJ 2 MG/ml SYRG IV ONE (02:45)
[2024-08-01] MEDS: methylPREDNISolone SOD SUCC 125 MG/2 ML VL IV ONE (02:45)
[2024-08-01 03:20] VITALS: BP 139/83; PULSE 92; RESP 19; TEMP 97.8; O2SAT 94
== END 2024-08-01 05:07 | disposition home or self-care (01) ==
LOC: ER 02:19
DX: M06.9 Rheumatoid arthritis, unspecified (principal); J44.9 Chronic obstructive pulmonary disease, unspecified; F17.210 Nicotine dependence, cigarettes, uncomplicated; F15.90 Other stimulant use, unspecified, uncomplicated; Z85.9 Personal history of malignant neoplasm, unspecified; Z88.6 Allergy status to analgesic agent; Z88.8 Allergy status to other drugs, medicaments and biological substances; Z79.52 Long term (current) use of systemic steroids; Z79.899 Other long term (current) drug therapy
CPT/HCPCS: J1885